=== PATIENT | male | born 1950 | race Caucasian/White ===

== ENCOUNTER 2016-09-15 09:50 | Inpatient (IN) | payer MEDICARE, BC ==
[~2016-09-15] VITALS: Ht 165.1 cm; Wt 114.1 kg
[2016-09-15] VITALS (43 sets, daily range): BP systolic 69–108; BP diastolic 24–70; PULSE 91–105; RESP 7–34
[2016-09-15] MEDS ORDERED: SOD CHLORIDE 0.9% 1,000 ML IV SCH ×2 (10:08)
[2016-09-15] MEDS ORDERED: ALBUTEROL 0.5% (NEB) 2.5 MG/0.5 ML AMP NEB PRN (10:30)
[2016-09-15] MEDS ORDERED: DOBUTamine/D5W 1 MG/ML DRIP 250 ML IV SCH (10:30)
[2016-09-15] MEDS ORDERED: VANCOMYCIN IV PER PHARMACY XX SCH (10:30)
[2016-09-15] MEDS ORDERED: IPRATROPIUM (NEB) 0.5 MG/2.5 ML AMP NEB PRN (10:30)
[2016-09-15] MEDS ORDERED: LORAZEPAM 2 MG INJ IV PRN (10:30)
[2016-09-15] MEDS ORDERED: NITROGLYCERIN (SL) 0.4 MG TAB SL PRN (10:30)
[2016-09-15] MEDS ORDERED: DEXTROSE 5%-0.45% NACL 1,000 ML IV SCH (10:30)
[2016-09-15] MEDS ORDERED: ACETAMINOPHEN 325 MG TAB PO PRN (10:30)
[2016-09-15] MEDS ORDERED: ACETAMINOPHEN 650MG/20.3ML CUP PO PRN (10:30)
[2016-09-15] MEDS ORDERED: METOCLOPRAMIDE 10 MG INJ IV PRN (10:30)
[2016-09-15] MEDS ORDERED: SOD CHLORIDE 0.9% 1,000 ML IV PRN (10:38)
[2016-09-15] MEDS ORDERED: DEXTROSE 50% 50 ML SYRINGE IV PRN ×4 (11:30→18:30)
[2016-09-15] MEDS ORDERED: GLUCAGON 1 MG INJ IM PRN (11:30)
[2016-09-15] MEDS ORDERED: GLUCOSE GEL 15 GRAM TUBE PO PRN ×2 (11:30)
[2016-09-15] MEDS ORDERED: GLUCOSE GEL 15 GRAM TUBE BUCCAL PRN (11:30)
--- NOTE | 2016-09-15 11:42 | HP ---
DATE OF ADMISSION: 09/15/2016 The patient was transferred from [facility] secondary to sepsis. REASON FOR ADMISSION: Sepsis and decrease in mentation. HISTORY OF PRESENT ILLNESS: This is an unfortunate 66-year-old gentleman with past medical history of hypertension, diabetes mellitus type 2, cirrhosis, multiple myeloma, lung cancer, hepato cellular carcinoma, benign prostatic hypertrophy, hemorrhagic stroke in July of 2016 and has had expressive aphasia then subsequent seizure, developed status epilepticus and has not recovered from mental status since then. Then, he was recently was subsequently intubated in August of 2016 and required mechanical ventilatory support subsequent tracheostomy and gastrostomy. He has required s everal attempts of paracentesis secondary to cirrhosis, has been placed on G-tube feeding and was tr ansferred to [place] on 09/03/2016 which he has been seen and evaluated by research quality assurance specialist, nephrologis t, architectural draftsman, inspector and clerk, and he has had several episodes of hypernatremia, hyperglyce aron. He was found to be in respiratory distress for the past 2 days, requiring more oxygen and has been having fever; therefore, secondary to sepsis he was transferred to [facility] ICU. Un fortunately, the patient is not able to provide me with any information. Great amount of informatio n was obtained from the previous notes from [facility] and Nephrology sail repair person who has been zunilda ng care of him during the course of [place] and the previous notes and hospitalization. The patient is very obtunded and is not able to follow any commands or respond to any pain or verbal stimuli. PAST MEDICAL AND SURGICAL HISTORY: As above per HPI. MEDICATIONS: 1. Tylenol. 2. Albuterol. 3. Caspofungin. 4. Lasix. 5. Insulin sliding scale. 6. Atrovent. 7. Vimpat. 8. Keppra. 9. Ativan. 10. Reglan. 11. Pepcid. 12. Rifaximin. 13. Aldactone. ALLERGIES: NO KNOWN DRUG ALLERGIES. FAMILY HISTORY: Noncontributory. SOCIAL HISTORY: Apparently, he has a history of alcohol use, smoking unknown, illicit drug is unkno wn. REVIEW OF SYSTEMS: Not obtainable since patient is not able to provide me any information. PHYSICAL EXAMINATION: VITAL SIGNS: Temperature 98.6, pulse 106, respiration rate 26, oxygen saturation 94% on the vent, t idal volume 600, FIO2 of 40% with a PEEP of 5 and blood pressure 94/57 on dopamine 5 mcg. GENERAL APPEARANCE: The patient is lying in the bed, very obtunded and not able to follow any comma nds, does have generalized edema. He is on vent and trach and has a PEG tube. EYES: Conjunctivae is icteric. Pupils are reactive to light, although sluggish, he is not able to follow commands, extraocular motor examination is not obtainable. NECK: Supple. Tracheostomy in place. The tracheostomy site is dry and clean. CHEST: Normal expansion of thorax, no deformity. LUNGS: Decreased breath sounds bilateral lower lung leonard with crackles. CARDIOVASCULAR: Normal S1, S2. Regular rhythm and rate. Positive 3 edema bilateral upper and lowe r extremity. ABDOMEN: Distended with evidence of ascites. Bowel sounds distant secondary to abdominal distentio n. GENITOURINARY: Penis is swollen and edematous. Chavez in place. EXTREMITIES: Upper and lower extremities there is no deformity, although, there is positive 3 edema bilateral upper and lower extremity. There is decubitus on bilateral heels. NEUROLOGIC: Not obtainable. The patient is awake, although, not alert or oriented, and unable to f ollow commands. LABORATORY WORK AND IMAGING: WBC 20.4, hemoglobin 9.7, hematocrit 29.3, MCV 116.3, platelets 75, ne utrophil 30. Sodium 135, potassium 5.7, chloride 104, bicarbonate 12, BUN 82, creatinine 2.08, anio n gap 25. Lactic acid 10.6, glucose 94, calcium 11.1, phosphorus 5.9, TIBC 151, total iron 73, iron sat of 48, ferritin 662, total bilirubin 4.8, direct bilirubin 3.1, indirect bilirubin 1.7, AST 77, ALT 82, alkaline phosphatase 287. Ammonia 36. Albumin 2.6. ASSESSMENT AND PLAN: 1. Sepsis, likely secondary to pneumonia. Pulmonology has been consulted. Patient has been placed on cefepime and vancomycin. Infectious disease doctor has been consulted. We will follow their re commendation. Follow up blood culture. Place the patient on septic protocol. The patient is on do pamine. 2. History of cirrhosis. 3. Acute on chronic renal insufficiency, likely secondary to acute tubular necrosis. Nephrology jonas gentile. 4. Cirrhosis secondary to history of end-stage liver disease. 5. History of immunocompromise. 6. Hyperkalemia. 7. Thrombocytopenia secondary to history of cirrhosis. 8. Transaminitis secondary to history of cirrhosis and end-stage liver disease. 9. Diabetes mellitus type 2. 10. History of essential hypertension. At this time, the patient is hypotensive. We will hold blo od pressure medication and place on parameters. 11. Ventilator-dependent respiratory failure. Pulmonology is following. 12. History of hemorrhagic CVA. Patient is obtunded we will refrain from using any antiplatelet or anticoagulation medication. 13. CONDITION: Critical. 14. We will continue to monitor patient closely. Further recommendations, management and treatment as per clinical course. Total amount of time was spent for evaluation of patient and admission workup 1 hour. Dictated By: MIKE JESUS/NTS Conf#: [id number] DID#: [id number]
[2016-09-15] MEDS: INSULIN ASPART [NOVOLOG] 3 ML PEN SC SCH ×2 (13:00→17:00)
[2016-09-15] MEDS: CEFEPIME 1GM/50 ML (PMX) 50 ML IVPB SCH ×2 (13:30→23:24)
[2016-09-15] MEDS: DOPamine-D5W 1.6 MG/ML 250 ML IV SCH ×4 (13:35→23:30)
[2016-09-15] MEDS ORDERED: VANCOMYCIN 2 GM in SOD CHLORIDE 0.9% 500 ML IVPB SCH (14:00)
[2016-09-15 14:17] LABS: AADO2 Arterial 193.5 mmHg (7.0-24.0); Allen Test ACCEPTAB; Arterial Base Excess -15.6 mmol/L (-3.0-3); Arterial COHb 0.1 % (0.0-3.0); Arterial Fraction of Oxyhgb 90.8 % (93.0-99.0); Arterial HCO3 9.5 mmol/L (22.0-26.0); Arterial MetHb 0.1 % (0.0-1.5); Arterial Total Hemglobin 11.6 g/dl (12.0-18.0); MODE VENT - AC
--- NOTE | 2016-09-15 15:54 | CONS ---
DATE OF ADMISSION: 09/15/2016 DATE OF CONSULTATION: 09/15/2016 TYPE OF CONSULTATION: Infectious disease. REASON FOR CONSULTATION: Antibiotic management. HISTORY OF PRESENT ILLNESS: Ankit Harris is a chronically male who was transferred fro [facility] secondary to sepsis. PAST PROBLEMS INCLUDE: 1. Hypertension. 2. Adult-onset diabetes mellitus. 3. Cirrhosis of the liver. 4. Multiple myeloma. 5. Lung cancer. 6. Hepatocellular carcinoma. 7. Benign prostatic hypertrophy. 8. History of hemorrhagic stroke in July 2016 with expressive aphasia and subsequent seizures. 9. History of status epilepticus. 10. Decreased mental status. 11. Ventilatory dependent respiratory failure. 12. Status post tracheostomy. 13. Dysphagia, status post G-tube placement. 14. Ascites secondary to cirrhosis. He was transferred to [place] on 09/03/2016. He was seen and ev aluated by multiple specialists. Patient was found to be in respiratory distress over the last few d ays, requiring more oxygen, having fever and therefore was transferred to the ICU at [facility]. His family is by his bedside. The patient is awake, but noncommunicative at the present time . PAST MEDICAL HISTORY: Operations as outlined. FAMILY HISTORY: Noncontributory. SOCIAL HISTORY: He has a history of alcohol abuse. He does not smoke or abuse drugs. ALLERGIES: NONE TO PENICILLIN, SULFA OR FOODS. MEDICATIONS: Per chart. REVIEW OF SYSTEMS: As per HPI. PHYSICAL EXAMINATION: GENERAL: The patient is a well-developed, chronically ill-appearing male who is awake, noncommunica tive, in no acute distress. VITAL SIGNS: On FIO2 of 40%, PEEP of 5 to maintain his blood pressure, oxygen saturation at 94%, bl ood pressure 94/57. He is on dopamine 5 mcg/kg per minute. SKIN: Without generalized rash. He has a trach, PEG, Chavez and a PICC line. HEENT: Within normal limits. NECK: Supple. Tracheostomy in place, dry and clean. LYMPH NODES: None palpable. CHEST: Decreased breath sounds at the bases. HEART: Without murmur or gallop. ABDOMEN: Soft, nontender, distended. G-tube in place. He has evidence of ascites. EXTREMITIES: He has 2+ to 3+ edema bilaterally. He has decubiti on both heels. RECTAL/GENITAL: Exam is deferred. Chavez catheter in place. Scrotum is edematous. NEUROLOGIC: The patient is awake, unable to follow commands. ANCILLARY LABORATORY DATA: White count 20.7, H and H of 9.7 and 29.3, platelet count 75,000. BUN a nd creatinine 82/2.08, anion gap 25, total bilirubin 4.8, direct bilirubin 3.1, indirect is 1.7, AST 77, ALT 82, alk phos 287, ammonia 36, albumin 2.6. IMPRESSION AND PLAN: The patient is septic, probably related to pneumonitis. He was placed on vanc omycin and cefepime. Blood cultures were done. He is currently on dopamine. His chest x-ray from 09/12/2016 shows pulmonary vascular congestion with opacities within the lung base, likely due to pl eural effusions and atelectasis. He was placed on caspofungin and cefepime. Wound care was ordered . We will check on blood cultures, sputum cultures, urine cultures. I will dictate my findings to Dr. Dunbar and the hospitalist. Dictated By: JENNY ANDRADE MD, JD/RA Conf#: [id number] DID#: [id number]
[2016-09-15] MEDS: COLLAGENASE 30 GM TUBE TOP SCH (16:00)
[2016-09-15] MEDS: SILVER SULFADIAZINE 1% 25 GM CR TOP SCH (16:00)
--- NOTE | 2016-09-15 16:12 | CONS ---
DATE OF ADMISSION: 09/15/2016 DATE OF CONSULTATION: TYPE OF CONSULTATION: Pulmonary. REASON FOR CONSULTATION: Hypotension, ventilator management. Thank you, Dr. Dunbar, for this consultation. HISTORY OF PRESENT ILLNESS: This is a 66-year-old gentleman with multiple medical problems, transfe rred from [facility] to [facility] for the intensive care unit fo r low blood pressure. Few further details are available. PAST MEDICAL HISTORY: Includes multiple myeloma, hepatocellular carcinoma, BPH, history of lung canc er and recent history of hemorrhagic stroke with subsequent encephalopathy requiring tracheostomy, m echanical ventilation and G-tube placement. Since that time he has had several paracenteses performe d for abdominal ascites, continues mechanical ventilation and was transferred to [facility] for possible mechanical ventilator weaning. However, today became less responsive, requirin g transfer to intensive care unit for low blood pressure. PAST MEDICAL HISTORY: As above. MEDICATIONS: Per chart. ALLERGIES: NONE. SOCIAL HISTORY: Nonsmoker, no alcohol, no history of drug use. FAMILY HISTORY: Noncontributory. SYSTEMS REVIEW: A 12-point review of systems unable to perform. PHYSICAL EXAMINATION: GENERAL: Chronically ill appearing gentleman. Opens eyes to voice but not consistently following c ommands. VITAL SIGNS: Temperature 98, pulse is 100, blood pressure 97/65, O2 saturation 96%, FIO2 of 40%. NECK: Trach site clean and intact. CARDIAC: S1, S2, no added sounds or murmurs. CHEST: Diminished air entry bilaterally. ABDOMEN: Soft, nontender. No guarding or rebound. EXTREMITIES: No cyanosis, clubbing, 2+ edema. NEUROLOGIC: Generalized weakness, unable to assess. LABORATORY DATA: CBC and Chem-7 are pending. Lactic acid was 10.4. Arterial blood gas pH was 7.26 , pCO2 of 21, pO2 of 66, bicarbonate was 9.5. IMPRESSION: 1. Septic shock, likely polymicrobial. 2. Vent dependent respiratory failure. 3. History of multiple malignancies. 4. Encephalopathy following recent hemorrhagic CVA. The patient will require: 1. Vent support. 2. Adjust for metabolic acidosis. 3. Intravenous bicarbonate drip. 4. Broad-spectrum antibiotics. 5. DVT and GI prophylaxis. Overall prognosis is very poor. The patient is unlikely to survive this episode. Dictated By: KEITH GONZALEZ/RA Conf#: [id number] DID#: [id number]
[2016-09-15 16:23] LABS: HEMATOCRIT 27.7 % (42.0-52.0); MEAN CORPUSCULAR HEMOGLOBIN 38.1 pg (29.0-33.0); MEAN CORPUSCULAR HGB CONC 32.6 g/dl (32.0-37.0); MEAN CORPUSCULAR VOLUME 117.1 fl (82.0-101.0); MEAN PLATELET VOLUME 12.8 fl (7.4-10.4); PLATELET COUNT 67 10^3/UL (140-440); RED BLOOD COUNT 2.37 10^6/ul (4.70-6.10); RED CELL DISTRIBUTION WIDTH 25.9 % (11.5-14.5); WHITE BLOOD COUNT 15.6 10^3/ul (4.8-10.8)
[2016-09-15 16:25] LABS: CONDITION 1; LH ANALYZER COMMENTS 1; SUSPECT 1; UNCORRECTED WBC 16.6 10^3/ul (4.8-10.8)
[2016-09-15 16:32] LABS: ALBUMIN 1.8 g/dl (3.3-4.9)
[2016-09-15 16:33] LABS: POTASSIUM 4.7 mmol/L (3.5-5.1)
[2016-09-15 16:35] LABS: ALBUMIN/GLOBULIN RATIO 0.58; BILIRUBIN,DIRECT 5.7 mg/dl (0.00-0.20); BILIRUBIN,INDIRECT 1.8 mg/dl (0-1.1); BILIRUBIN,TOTAL 7.5 mg/dl (0.2-1.3); CREATININE 0.53 mg/dl (0.61-1.24); TOTAL PROTEIN 4.9 g/dl (6.1-8.1)
[2016-09-15 16:36] LABS: CALCIUM 8.9 mg/dl (8.4-10.2)
[2016-09-15 16:59] LABS: LYMPHOCYTES # 0.3 10^3/ul (0.8-2.9); NEUTROPHIL # 9.5 10^3/ul (1.6-7.5)
[2016-09-15 17:00] LABS: ANISOCYTOSIS 2+; BURR CELLS FEW
[2016-09-15] MEDS ORDERED: SODIUM BICARBONATE (IV ADD) 150 MEQ in DEXTROSE 5%-0.45% NACL 1,000 ML IV SCH (17:00)
[2016-09-15 17:01] LABS: PLATELET ESTIMATE PLT APPEAR DECREASED
[2016-09-15] MEDS: SODIUM BICARBONATE (IV ADD) 150 MEQ in DEXTROSE 5% 1,000 ML IV SCH (17:11)
[2016-09-15] MEDS: FUROSEMIDE 20 MG TAB PO SCH (18:00)
--- NOTE | 2016-09-15 18:29 | CONS ---
Date/Time of Note Date/Time of Note DATE: 09/15/16 TIME: 18:20 Assessment/Plan Assessment/Plan Problems: (1) Type 2 diabetes mellitus without complications Status: Chronic Comment: Pt. was on insulin at [place] and this dose was being adjusted b/c pt. w/ recent high residuals and tube feeds being intermittently held. Pt. did receive NPH this am. Now glucose near low. Withhold NPH and even Novolog ISS. Check glucose q4. If glucose > 180 mg/dL, will start IV insulin drip. Will follow with you. Prognosis exceptionally poor. Consultation Date/Type/Reason Admit Date/Time Sep 15, 2016 at 09:50 Date of Consultation: Sep 15, 2016 Type of Consultation: Endocrinology Reason for Consultation T2DM management Referring Provider: WELLINGTON HERRON MD Hx of Present Illness 66 y/o H M w/ h/o HTN, T2DM, cirrhosis, multiple myeloma, lung cancer, HCC, BPH , p/w hemorrhagic CVA 1 month ago. Had subsequent seizures, status epilepticus , respiratory failure. Has been encephalopathic since then. Transferred to [facility] and I became involved to manage BG. This am pt. became hypotensive and was transferred to [facility]ICU. Subjective hx not possible: pt non-verbal, pt critical Past Medical History Medical History: cancer (multiple myeloma, lung CA, HCC), congestive heart failure (diastolic), diabetes, hypertension, other (BPH, cirrhosis, CVA) Past Surgical History Past Surgical Hx: appendectomy, cholecystectomy, other (mulitple removals of HCC, trach, PEG) Family History Significant Family History: hypertension Social History b. 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[employer], , 3 children Alcohol Use: sober Smoking Status: Unknown if ever smoked Drug Use: none Exam/Review of Systems Vital Signs Vitals VS - Last 72 Hours, by Label Date Time Temp Pulse Resp B/P Pulse Ox O2 Delivery O2 Flow Rate FiO2 09/15/16 17:30 96 27 103/24 99 09/15/16 17:28 99 25 98 40 09/15/16 17:00 98 28 89/44 98 Mechanical Ventilator 09/15/16 16:30 99 28 91/31 95 09/15/16 16:00 96.1 102 27 91/35 95 Mechanical Ventilator 09/15/16 16:00 99 09/15/16 16:00 103 09/15/16 15:50 102 28 95 40 09/15/16 15:30 101 27 89/39 95 09/15/16 15:00 102 31 88/42 95 Mechanical Ventilator 09/15/16 14:30 97 7 81/33 92 09/15/16 14:16 101 30 92 40 09/15/16 14:00 101 14 97/56 95 Mechanical Ventilator 09/15/16 13:30 100 27 89/33 95 09/15/16 13:00 102 34 93/48 93 Mechanical Ventilator 09/15/16 12:30 101 33 103/70 98 09/15/16 12:20 102 30 94 40 09/15/16 12:00 96.8 104 29 101/59 94 Mechanical Ventilator 09/15/16 11:30 102 29 90/63 94 09/15/16 11:00 99 28 91/52 94 Mechanical Ventilator 09/15/16 10:30 96.7 103 24 96/65 95 Mechanical Ventilator 09/15/16 10:00 104 30 94 40 09/15/16 10:00 40 09/15/16 10:00 101 Vital Signs Date Time Temp Pulse Resp B/P Pulse Ox O2 Delivery O2 Flow Rate FiO2 09/15/16 17:30 96 27 103/24 99 09/15/16 17:28 40 09/15/16 17:00 Mechanical Ventilator 09/15/16 16:00 96.1 Exam Constitutional: frail, non-verbal, obese, No alert, No oriented, No well developed Eyes: PERRL, icteric ENMT: mucosa pink and moist, nl external ears & nose Neck: non-tender, other ((+) trach), supple Respiratory: clear to auscultation, normal air movement Cardiovascular: edema (4+ diffuse anasarca), murmurs/extra sounds (grade 3 systolic), regular rate and rhythm, No rub Gastrointestinal: ascites, bowel sounds, distended, firm, non-tender Musculoskeletal: nl extremities to inspection Extremities: edema (anasarca), No clubbing, No cyanosis Neurological: unresponsive (eyes open, rapid breathing on vent) Additional Comments Bedside Glucose - 72 Hours Test 09/15/16 13:28 09/15/16 16:46 09/15/16 17:09 09/15/16 17:23 Bedside Glucose 86mg/dL (70-220) 64mg/dL (70-220) L 105mg/dL (70-220) 98mg/dL (70-220) Results Result Diagram: 09/15/16 1600 09/15/16 1600 Results 24 hrs Laboratory Tests Test 09/15/16 11:02 09/15/16 13:28 09/15/16 13:36 09/15/16 16:00 Lactic Acid Level 10.4 *H 9.4 *H Prealbumin 3.3 L Bedside Glucose 86 Arterial Blood HCO3 9.5 *L Arterial Blood Base Excess -15.6 L Arterial Blood Oxygen Saturation 91.0 L Wai Test ACCEPTAB Arterial Blood Gas Puncture Site Right Radial Arterial Blood Carboxyhemoglobin 0.1 Arterial Blood Date Drawn 09/15/2016 2:00:27 PM Arterial Blood Methemoglobin 0.1 Arterial Blood pCO2 (Temp correct) 21.6 L Arterial Blood pH (Temp corrected) 7.262 *L Arterial Blood pO2 (Temp corrected) 66.9 L Blood Gas A-a O2 Differential 193.5 H Blood Gas Actual Respiration Rate 14 Blood Gas Critical Value Read Back Irma GERMAN RN Blood Gas Low PEEP Setting 5.0 Blood Gas Modality VENT - AC Blood Gas Notified Time 09/15/2016 2:16:11 PM Blood Gas Notified Whom JLD Blood Gas Respiration Rate 12.0 Blood Gas Specimen Source Blood arterial Blood Gas Temperature 37.0 Blood Gas Tidal Volume 600.0 FiO2 40.0 Oxyhemoglobin Percent 90.8 L Total Hemoglobin 11.6 L Alanine Aminotransferase (ALT/SGPT) 234 H Albumin 1.8 L Albumin/Globulin Ratio 0.58 Alkaline Phosphatase 126 #H Anion Gap 26 H Anisocytosis 2+ Aspartate Amino Transf (AST/SGOT) 320 #H Band Neutrophils % 35.0 H Blood Morphology Comment Blood Urea Nitrogen 69 H Calcium Level 8.9 Carbon Dioxide Level 8 *L Chloride Level 99 Creatinine 0.53 #L Direct Bilirubin 5.70 #H Globulin 3.10 Glucose Level 307 #H Hematocrit 27.7 L Hemoglobin 9.0 L Indirect Bilirubin 1.8 H Large Platelets FEW Lymphocytes # 0.3 L Lymphocytes % 2.0 L Macrocytosis 2+ Mean Corpuscular Hemoglobin 38.1 H Mean Corpuscular Hemoglobin Concent 32.6 Mean Corpuscular Volume 117.1 H Mean Platelet Volume 12.8 H Metamyelocytes # 0.3 Metamyelocytes % 2.0 H Neutrophils # 9.5 H Neutrophils % 61.0 Platelet Count 67 L Platelet Estimate PLT APPEAR DECREASED Potassium Level 4.7 Red Blood Count 2.37 L Red Cell Distribution Width 25.9 H Sodium Level 128 L Total Bilirubin 7.5 #H Total Protein 4.9 #L White Blood Count 15.6 #H Test 09/15/16 16:46 09/15/16 17:09 09/15/16 17:23 Bedside Glucose 64 L 105 98 Medications Medications Current Medications Nitroglycerin (Nitroglycerin (Sl Tab) 0.4 Mg) 1 tab Q5M PRN SL CHEST PAIN; Start 09/15/16 at 10:30 Acetaminophen (Tylenol Liquid) 650 mg Q6H PRN PO PAIN LEVEL 1-3 OR FEVER; Start 09/15/16 at 10:30 Acetaminophen (Tylenol Tab) 650 mg Q6H PRN PO PAIN LEVEL 1-3 OR FEVER; Start at 10:30 Lorazepam (Ativan) 1 mg Q2H PRN IV ANXIETY; Start 09/15/16 at 10:30 Pantoprazole 40 mg 40 mg DAILY@06 IV ; Start 09/16/16 at 06:00 Cefepime HCl 50 ml @ 100 mls/hr Q12 IVPB Last administered on 09/15/16t 13:30; Admin Dose 100 MLS/HR; Start 09/15/16 at 12:35; Stop 09/15/16 at 23:29 Caspofungin/ Sodium Chloride (Cancidas/NS) 250 ml @ 250 mls/hr Q24H IVPB ; Start 09/15/16 at 22:00; Stop 09/15/16 at 23:59 Lacosamide (Vimpat Liq) 100 mg BID PO ; Start 09/15/16 at 21:00 Levetiracetam (Keppra Liquid) 500 mg BID GTB ; Start 09/15/16 at 21:00 Metoclopramide HCl (Reglan) 5 mg Q6H PRN IV CONSTIPATION; Start 09/15/16 at 10: 30 Rifaximin (Xifaxan) 550 mg BID PO ; Start 09/15/16 at 21:00 Spironolactone (Aldactone) 25 mg DAILY PO ; Start 09/16/16 at 09:00 Insulin Aspart (Novolog Insulin Pen) NOVOLOG *MILD* ALGORI... Q4 SC ; Start 09/15 at 13:00 Miscellaneous Information 1 ea NOTE XX ; Start 09/15/16 at 11:30 Glucose (Glutose) 15 gm Q15M PRN PO DECREASED GLUCOSE; Start 09/15/16 at 11:30 Glucose (Glutose) 22.5 gm Q15M PRN PO DECREASED GLUCOSE; Start 09/15/16 at 11:30 Dextrose (D50w Syringe) 25 ml Q15M PRN IV DECREASED GLUCOSE Last administered on 09/15/16 16:52; Admin Dose 25 ML; Start 09/15/16 at 11:30 Dextrose (D50w Syringe) 50 ml Q15M PRN IV DECREASED GLUCOSE; Start 09/15/16 at 11:30 Glucagon (Glucagen) 1 mg Q15M PRN IM DECREASED GLUCOSE; Start 09/15/16 at 11:30 Glucose 15 gm 15 gm Q15M PRN BUCCAL DECREASED GLUCOSE; Start 09/15/16 at 11:30 Vancomycin HCl 2 gm/Sodium Chloride 500 ml @ 125 mls/hr ONCE IVPB Last administered on 09/15/16 14:37; Admin Dose 125 MLS/HR; Start 09/15/16 at 14:00; Stop 09/15/16 at 23:33 Vancomycin HCl 250 ml @ 125 mls/hr Q24H IVPB ; Start 09/16/16 at 14:00 Dopamine HCl/ Dextrose 250 ml @ 8.558 mls/ hr TITRATE IV Last administered on 09/15/16 16:56; Admin Dose 85.575 MLS/HR; Start 09/15/16 at 12:00 Cefepime HCl 50 ml @ 100 mls/hr Q24H IVPB ; Start 09/16/16 at 09:00 Caspofungin/ Sodium Chloride (Cancidas/NS) 250 ml @ 250 mls/hr Q24H IV ; Start 09/16/16 at 12:00 Collagenase (Santyl) 1 applic QAM TOP Last administered on 09/15/16 16:00; Admin Dose 1 APPLIC; Start 09/15/16 at 15:00 Silver Sulfadiazine 1 applic 1 applic DAILY TOP Last administered on 09/15/16 16:00; Admin Dose 1 APPLIC; Start 09/15/16 at 15:00 Sodium Bicarbonate 150 meq/Dextrose 1,150 ml @ 100 mls/hr [id number] IV Last administered on 09/15/16 17:11; Admin Dose 100 MLS/HR; Start 09/15/16 at 17:00 Norepinephrine/ Dextrose (Levophed/D5W) 500 ml @ 1.87 mls/hr TITRATE IV Last administered on 09/15/16 17:51; Admin Dose 3.75 MLS/HR; Start 09/15/16 at 16:30 NICKI LOWERY MD Sep 15, 2016 18:29
[2016-09-15 19:02] LABS: CALCIUM 10.7 mg/dl (8.4-10.2)
[2016-09-15 19:11] LABS: CREATININE 2.11 mg/dl (0.61-1.24)
[2016-09-15] MEDS ORDERED: ACCUCHECK XX SCH (20:00)
[2016-09-15] MEDS ORDERED: INSULIN REGULAR, HUMAN 100 UNIT in SOD CHLORIDE 0.9% 99 ML IV SCH ×2 (20:00)
[2016-09-15 20:49] LABS: AADO2 Arterial 188.3 mmHg (7.0-24.0); Allen Test ACCEPTAB; Arterial Base Excess -15.4 mmol/L (-3.0-3); Arterial COHb 0.2 % (0.0-3.0); Arterial HCO3 9.9 mmol/L (22.0-26.0); Arterial MetHb 0.2 % (0.0-1.5); Arterial Total Hemglobin 11.2 g/dl (12.0-18.0); MODE VENT - AC
[2016-09-15] MEDS: ACCUCHECK XX SCH (21:00)
[2016-09-15] MEDS: LEVETIRACETAM (100 MG/ML) 5ML CUP GTB SCH (21:37)
[2016-09-15] MEDS: RIFAXIMIN 550 MG TAB PO SCH (21:37)
[2016-09-15] MEDS: LACOSAMIDE (10 MG/ML PO SYG) PO SCH (21:37)
[2016-09-15] MEDS ORDERED: CASPOFUNGIN 50 MG in SOD CHLORIDE 0.9% 250 ML IVPB SCH (22:00)
[2016-09-16] VITALS (28 sets, daily range): BP systolic 85–106; BP diastolic 27–63; PULSE 80–137; RESP 0–32
[2016-09-16] MEDS: ACCUCHECK XX SCH ×3 (01:00→09:00)
[2016-09-16] MEDS: DOPamine-D5W 1.6 MG/ML 250 ML IV SCH ×2 (04:27→07:59)
[2016-09-16 05:21] LABS: HEMATOCRIT 26.7 % (42.0-52.0); HEMOGLOBIN 8.4 g/dl (14.0-18.0); MEAN CORPUSCULAR HEMOGLOBIN 38.7 pg (29.0-33.0); MEAN CORPUSCULAR HGB CONC 31.5 g/dl (32.0-37.0); MEAN PLATELET VOLUME 13.2 fl (7.4-10.4); PLATELET COUNT 70 10^3/UL (140-440); RED BLOOD COUNT 2.17 10^6/ul (4.70-6.10); RED CELL DISTRIBUTION WIDTH 25.9 % (11.5-14.5); UNCORRECTED WBC 19.6 10^3/ul (4.8-10.8); WHITE BLOOD COUNT 19.6 10^3/ul (4.8-10.8)
[2016-09-16] MEDS: SODIUM BICARBONATE (IV ADD) 150 MEQ in DEXTROSE 5% 1,000 ML IV SCH (05:34)
[2016-09-16] MEDS: FUROSEMIDE 20 MG TAB PO SCH (05:36)
[2016-09-16] MEDS ORDERED: PANTOPRAZOLE 40 MG INJ IV SCH (06:00)
[2016-09-16 06:06] LABS: CONDITION 1; LH ANALYZER COMMENTS 1; SUSPECT 1
--- NOTE | 2016-09-16 07:43 | RADRPT ---
PROCEDURE: XR Chest. CLINICAL INDICATION: Respiratory failure TECHNIQUE: Chest AP portable. COMPARISON: 09/15/2016 FINDINGS: Tracheostomy tube. No change in left arm PICC line. The mediastinal structures are unremarkable. The heart is normal in size and configuration. The pulm onary vascularity is normal. There are low lung volumes.. There is mild bibasilar subsegmental atele ctasis. The pleural spaces are unremarkable. The axial skeleton is unremarkable. IMPRESSION: Low lung volumes. Mild bibasilar subsegmental atelectasis RPTAT: HGDB .Manuel Watkins MD, Date Time Electronically viewed and signed by .Manuel Watkins MD, on 09/16/2016 07:43 .B/
[2016-09-16 08:05] LABS: Allen Test ACCEPTAB; Arterial Base Excess -17.7 mmol/L (-3.0-3); Arterial COHb 0.3 % (0.0-3.0); Arterial Fraction of Oxyhgb 93.2 % (93.0-99.0); Arterial HCO3 7.9 mmol/L (22.0-26.0); Arterial MetHb 0.3 % (0.0-1.5); Arterial Total Hemglobin 11.2 g/dl (12.0-18.0); MODE VENT - AC
[2016-09-16] MEDS: LEVETIRACETAM (100 MG/ML) 5ML CUP GTB SCH (08:48)
[2016-09-16] MEDS: RIFAXIMIN 550 MG TAB PO SCH (08:49)
[2016-09-16 08:50] LABS: POTASSIUM 6.7 mmol/L (3.5-5.1)
[2016-09-16] MEDS: COLLAGENASE 30 GM TUBE TOP SCH (08:50)
[2016-09-16] MEDS: SILVER SULFADIAZINE 1% 25 GM CR TOP SCH (08:51)
[2016-09-16 08:52] LABS: CREATININE 2.08 mg/dl (0.61-1.24)
[2016-09-16 08:53] LABS: ANISOCYTOSIS 2+; BURR CELLS OCCASIONAL; LYMPHOCYTES # 0.4 10^3/ul (0.8-2.9); MONOCYTE # 0.2 10^3/ul (0.3-0.9); NEUTROPHIL # 12.3 10^3/ul (1.6-7.5)
[2016-09-16 08:57] LABS: ALBUMIN 2.3 g/dl (3.3-4.9)
[2016-09-16] MEDS ORDERED: SPIRONOLACTONE 25 MG TAB PO SCH (09:00)
[2016-09-16] MEDS ORDERED: COLLAGENASE 30 GM TUBE TOP SCH (09:00)
[2016-09-16] MEDS ORDERED: CEFEPIME 2GM/50 ML IVPB SCH (09:00)
[2016-09-16 09:05] LABS: BILIRUBIN,DIRECT 7.6 mg/dl (0.00-0.20); BILIRUBIN,INDIRECT 2.5 mg/dl (0-1.1); BILIRUBIN,TOTAL 10.1 mg/dl (0.2-1.3)
[2016-09-16] MEDS ORDERED: ALBUTEROL 0.5% (NEB) 2.5 MG/0.5 ML AMP HHN STA (09:09)
[2016-09-16] MEDS ORDERED: DEXTROSE 50% 50 ML SYRINGE IV ONE (09:30)
[2016-09-16] MEDS ORDERED: NA POLYST SULFON 15 GM/60 ML BTL PO ONE ×2 (09:30→10:30)
[2016-09-16] MEDS ORDERED: INSULIN REGULAR, HUMAN 100 UNIT/1 ML 3ML VIAL IV ONE (09:30)
[2016-09-16] MEDS: LACOSAMIDE (10 MG/ML PO SYG) PO SCH (09:53)
[2016-09-16] MEDS ORDERED: NA BICARBONATE 8.4% 50 ML SYG IV STA (10:01)
--- NOTE | 2016-09-16 10:21 | PN ---
Date/Time of Note Date/Time of Note DATE: 09/16/16 TIME: 10:09 Assessment/Plan VTE Prophylaxis VTE Prophylaxis Intervention: SCD's Lines/Catheters IV C[facility] Type (from [facility] PICC Line Central line still needed: Yes Urinary Cath still in place: Yes Reason Cath still needed: other (indicate) Assessment/Plan Chief Complaint/Hosp Course ASSESSMENT AND PLAN: 1. Sepsis, likely secondary to pneumonia. Pulmonology has been consulted. Patient has been placed on cefepime and vancomycin. Infectious disease doctor has been consulted. Continue septic protocol. The patient is on dopamine and levophed. 2. Possibly shock liver, with history of Cirrhosis secondary to history of end- stage liver disease. 3. Acute on chronic renal insufficiency, likely secondary to acute tubular necrosis. Nephrology following. Continue IV fluids 4. Severe metabolic acidosis, on bicarb drip, status post 1 amp of sodium bicarb, nephrology consulted 5. History of immunocompromise. 6. Hyperkalemia. Secondary to acute renal insufficiency, status post Kayexalate, insulin, albuterol, follow up electrolytes in a.m. 7. Thrombocytopenia secondary to history of cirrhosis. 8. History of hemorrhagic CVA. Patient is obtunded we will refrain from using any antiplatelet or anticoagulation medication. 9. Diabetes mellitus type 2. Continue insulin sliding scale 10. History of essential hypertension. At this time, the patient is hypotensive. We will hold blood pressure medication and place on parameters. 11. Ventilator-dependent respiratory failure. Pulmonology is following. Continue vent management 12. CONDITION: Critical. We will continue to monitor patient closely. Further recommendations, management and treatment as per clinical course. Plan to meet up with the family regarding the CODE STATUS and further care Problems: Subjective 24 Hr Interval Summary Free Text/Dictation Patient blood pressure continued to decrease yesterday therefore additional pressors had to be added Met with the family on 2016 regarding the CODE STATUS Patient continues to be on vent No urine output On pressors via dopamine and levophed Exam/Review of Systems Vital Signs Vitals Vital Signs Date Time Temp Pulse Resp B/P Pulse Ox O2 Delivery O2 Flow Rate FiO2 09/16/16 06:00 83 26 101/51 98 Mechanical Ventilator 09/16/16 05:25 40 09/16/16 04:00 98.0 Intake and Output 09/15/16 09/15/1617 15:00 23:00 07:00 Intake Total 312 ml 1820.575 ml 1374 ml Balance 312 ml 1820.575 ml 1374 ml Exam General: The patient is unresponsive to pain or verbal stimuli although he is awake but not alert. Not in any discomfort HEENT: Atraumatic, normocephalic. The pupils are equal with sluggish reaction to light Neck: Trach in place Chest: Normal Lungs: Decreased breath sounds bilateral lower lung field with crackles Heart: Normal S1-S2, Regular rhythm and rate. Abdomen: Soft , nontender, distended with evidence of ascites, bowel sounds are distant secondary to abdominal distention Extremities: +3 edema no cyanosis Neurologic: The patient is awake, does not follow any commands Results Result Diagram: 09/16/16 0405 09/16/16 0708 Results 24 hrs Laboratory Tests Test 09/15/16 11:02 09/15/16 13:28 09/15/16 13:36 09/15/16 16:00 Lactic Acid Level 10.4 *H 9.4 *H Prealbumin 3.3 L Bedside Glucose 86 Arterial Blood HCO3 9.5 *L Arterial Blood Base Excess -15.6 L Arterial Blood Oxygen Saturation 91.0 L Wai Test ACCEPTAB Arterial Blood Gas Puncture Site Right Radial Arterial Blood Carboxyhemoglobin 0.1 Arterial Blood Date Drawn 09/15/2016 2:00:27 PM Arterial Blood Methemoglobin 0.1 Arterial Blood pCO2 (Temp correct) 21.6 L Arterial Blood pH (Temp corrected) 7.262 *L Arterial Blood pO2 (Temp corrected) 66.9 L Blood Gas A-a O2 Differential 193.5 H Blood Gas Actual Respiration Rate 14 Blood Gas Critical Value Read Back Irma GERMAN RN Blood Gas Low PEEP Setting 5.0 Blood Gas Modality VENT - AC Blood Gas Notified Time 09/15/2016 2:16:11 PM Blood Gas Notified Whom NEIDAD Blood Gas Respiration Rate 12.0 Blood Gas Specimen Source Blood arterial Blood Gas Temperature 37.0 Blood Gas Tidal Volume 600.0 FiO2 40.0 Oxyhemoglobin Percent 90.8 L Total Hemoglobin 11.6 L Alanine Aminotransferase (ALT/SGPT) 234 H Albumin 1.8 L Albumin/Globulin Ratio 0.58 Alkaline Phosphatase 126 #H Anion Gap 26 H Anisocytosis 2+ Aspartate Amino Transf (AST/SGOT) 320 #H Band Neutrophils % 35.0 H Blood Morphology Comment Blood Urea Nitrogen 69 H Calcium Level 8.9 Carbon Dioxide Level 8 *L Chloride Level 99 Creatinine 0.53 #L Direct Bilirubin 5.70 #H Globulin 3.10 Glucose Level 307 #H Hematocrit 27.7 L Hemoglobin 9.0 L Indirect Bilirubin 1.8 H Large Platelets FEW Lymphocytes # 0.3 L Lymphocytes % 2.0 L Macrocytosis 2+ Mean Corpuscular Hemoglobin 38.1 H Mean Corpuscular Hemoglobin Concent 32.6 Mean Corpuscular Volume 117.1 H Mean Platelet Volume 12.8 H Metamyelocytes # 0.3 Metamyelocytes % 2.0 H Neutrophils # 9.5 H Neutrophils % 61.0 Platelet Count 67 L Platelet Estimate PLT APPEAR DECREASED Potassium Level 4.7 Red Blood Count 2.37 L Red Cell Distribution Width 25.9 H Sodium Level 128 L Total Bilirubin 7.5 #H Total Protein 4.9 #L White Blood Count 15.6 #H Test 09/15/16 16:46 09/15/16 17:09 09/15/16 17:23 09/15/16 18:40 Bedside Glucose 64 L 105 98 Anion Gap 27 H Blood Urea Nitrogen 84 H Calcium Level 10.7 H Carbon Dioxide Level 11 L Chloride Level 103 Creatinine 2.11 #H Glucose Level 69 #L Potassium Level 6.0 H Sodium Level 135 Test 09/15/16 20:00 09/15/16 20:21 09/15/16 21:55 09/16/16 02:47 Arterial Blood HCO3 9.9 *L Arterial Blood Base Excess -15.4 L Arterial Blood Oxygen Saturation 92.4 L Wai Test ACCEPTAB Arterial Blood Gas Puncture Site Right Radial Arterial Blood Carboxyhemoglobin 0.2 Arterial Blood Date Drawn 09/15/2016 8:40:57 PM Arterial Blood Methemoglobin 0.2 Arterial Blood pCO2 (Temp correct) 22.7 L Arterial Blood pH (Temp corrected) 7.257 *L Arterial Blood pO2 (Temp corrected) 70.8 L Blood Gas A-a O2 Differential 188.3 H Blood Gas Actual Respiration Rate 27 Blood Gas Critical Value Read Back GAVIN CID Blood Gas Low PEEP Setting 5.0 Blood Gas Modality VENT - AC Blood Gas Notified Time 09/15/2016 8:48:59 PM Blood Gas Notified Whom MA Blood Gas Respiration Rate 22.0 Blood Gas Specimen Source Blood arterial Blood Gas Temperature 37.0 Blood Gas Tidal Volume 600.0 FiO2 40.0 Oxyhemoglobin Percent 92.0 L Total Hemoglobin 11.2 L Bedside Glucose 76 87 Lactic Acid Level 6.5 *H Test 09/16/16 04:05 09/16/16 06:52 09/16/16 07:00 09/16/16 07:08 Anisocytosis 2+ Band Neutrophils % 33.0 H Blood Morphology Comment Differential Comment MANUAL DIFF Giant Platelets RARE Hematocrit 26.7 L Hemoglobin 8.4 L Lactic Acid Level 9.3 *H Large Platelets RARE Lymphocytes # 0.4 L Lymphocytes % 2.0 L Macrocytosis 2+ Mean Corpuscular Hemoglobin 38.7 H Mean Corpuscular Hemoglobin Concent 31.5 L Mean Corpuscular Volume 123.0 H Mean Platelet Volume 13.2 H Metamyelocytes # 0.2 Metamyelocytes % 1.0 H Monocytes # 0.2 L Monocytes % 1.0 Neutrophils # 12.3 H Neutrophils % 63.0 Nucleated Red Blood Cells % 1.0 H Platelet Count 70 L Red Blood Count 2.17 L Red Cell Distribution Width 25.9 H White Blood Count 19.6 #H Bedside Glucose 110 Arterial Blood HCO3 7.9 *L Arterial Blood Base Excess -17.7 L Arterial Blood Oxygen Saturation 93.8 L Wai Test ACCEPTAB Arterial Blood Gas Puncture Site Right Radial Arterial Blood Carboxyhemoglobin 0.3 Arterial Blood Date Drawn 09/16/2016 7:50:57 AM Arterial Blood Methemoglobin 0.3 Arterial Blood pCO2 (Temp correct) 19.4 L Arterial Blood pH (Temp corrected) 7.228 *L Arterial Blood pO2 (Temp corrected) 78.9 L Blood Gas A-a O2 Differential 184.0 H Blood Gas Actual Respiration Rate 30 Blood Gas Critical Value Read Back Katya WONG RN Blood Gas Low PEEP Setting 5.0 Blood Gas Modality VENT - AC Blood Gas Notified Time 09/16/2016 8:05:32 AM Blood Gas Notified Whom JLD Blood Gas Respiration Rate 12.0 Blood Gas Specimen Source Blood arterial Blood Gas Temperature 37.0 Blood Gas Tidal Volume 600.0 FiO2 40.0 Oxyhemoglobin Percent 93.2 Total Hemoglobin 11.2 L Alanine Aminotransferase (ALT/SGPT) 1739 H Albumin 2.3 L Alkaline Phosphatase 245 #H Anion Gap 32 H Aspartate Amino Transf (AST/SGOT) 3769 H Blood Urea Nitrogen 85 H Calcium Level 10.0 Carbon Dioxide Level 6 #*L Chloride Level 99 Creatinine 2.08 H Direct Bilirubin 7.60 H Glucose Level 95 Indirect Bilirubin 2.5 H Magnesium Level 2.0 Potassium Level 6.7 *H Sodium Level 130 L Total Bilirubin 10.1 H Total Protein 6.0 #L Test 09/16/16 09:58 Bedside Glucose 108 Medications Medications Current Medications Nitroglycerin (Nitroglycerin (Sl Tab) 0.4 Mg) 1 tab Q5M PRN SL CHEST PAIN; Start 09/15/16 at 10:30 Acetaminophen (Tylenol Liquid) 650 mg Q6H PRN PO PAIN LEVEL 1-3 OR FEVER; Start 09/15/16 at 10:30 Acetaminophen (Tylenol Tab) 650 mg Q6H PRN PO PAIN LEVEL 1-3 OR FEVER; Start at 10:30 Lorazepam (Ativan) 1 mg Q2H PRN IV ANXIETY; Start 09/15/16 at 10:30 Pantoprazole (Protonix Iv) 40 mg DAILY@06 IV Last administered on 09/16/16 05: 35; Admin Dose 40 MG; Start 09/16/16 at 06:00 Lacosamide (Vimpat Liq) 100 mg BID PO Last administered on 09/16/16 09:53; Admin Dose 100 MG; Start 09/15/16 at 21:00 Levetiracetam (Keppra Liquid) 500 mg BID GTB Last administered on 09/16/16 08: 48; Admin Dose 500 MG; Start 09/15/16 at 21:00 Metoclopramide HCl (Reglan) 5 mg Q6H PRN IV CONSTIPATION; Start 09/15/16 at 10: 30 Rifaximin (Xifaxan) 550 mg BID PO Last administered on 09/16/16 08:49; Admin Dose 550 MG; Start 09/15/16 at 21:00 Spironolactone 25 mg 25 mg DAILY PO Last administered on 09/16/16 08:49; Admin Dose 25 MG; Start 09/16/16 at 09:00 Vancomycin HCl 250 ml @ 125 mls/hr Q24H IVPB ; Start 09/16/16 at 14:00 Dopamine HCl/ Dextrose 250 ml @ 8.558 mls/ hr TITRATE IV Last administered on 09/16/16 07:59; Admin Dose 85.575 MLS/HR; Start 09/15/16 at 12:00 Cefepime HCl 50 ml @ 100 mls/hr Q24H IVPB Last administered on 09/16/16 09:53 ; Admin Dose 100 MLS/HR; Start 09/16/16 at 09:00 Caspofungin/ Sodium Chloride (Cancidas/NS) 250 ml @ 250 mls/hr Q24H IV ; Start 09/16/16 at 12:00 Collagenase (Santyl) 1 applic QAM TOP Last administered on 09/16/16 08:50; Admin Dose 1 APPLIC; Start 09/15/16 at 15:00 Silver Sulfadiazine 1 applic 1 applic DAILY TOP Last administered on 09/16/16 08:51; Admin Dose 1 APPLIC; Start 09/15/16 at 15:00 Sodium Bicarbonate 150 meq/Dextrose 1,150 ml @ 100 mls/hr [id number] IV Last administered on 09/16/16 05:34; Admin Dose 100 MLS/HR; Start 09/15/16 at 17:00 Norepinephrine/ Dextrose (Levophed/D5W) 500 ml @ 1.87 mls/hr TITRATE IV Last administered on 09/15/16 17:51; Admin Dose 3.75 MLS/HR; Start 09/15/16 at 16:30 Diagnostic Test (Pha) (Accucheck) 1 ea Q1H XX ; Start 09/15/16 at 20:00; Status Future Hold Dextrose (D50w Syringe) 25 ml Q15M PRN IV Till BS 80 mg/dL or above x2; Start 09/15/16 at 18:30 Dextrose (D50w Syringe) 50 ml Q15M PRN IV Till BS 80 mg/dL or above x2; Start 09/15/16 at 18:30 Diagnostic Test (Pha) 1 ea 1 ea Q4 XX Last administered on 09/16/16 05:35; Admin Dose 1 EA; Start 09/15/16 at 21:00 Bumetanide/ Dextrose (Bumex/D5W) 250 ml @ 10 mls/hr Q24H IV ; Start 09/16/16 at 10:30; Status UNV Sodium Polystyrene Sulfonate 15 gm 15 gm ONCE ONCE PO ; Start 09/16/16 at 10:30 ; Stop 09/16/16 at 10:31 Albumin Human (Albumin Human 25%) 50 ml @ 100 mls/hr Q8H IV ; Start 09/16/16 at 10:30; Stop 09/17/16 at 02:59 MIKE QUINTEROS MD Sep 16, 2016 10:21
[2016-09-16] MEDS ORDERED: ALBUMIN HUMAN 25% 50 ML IV SCH (10:30)
--- NOTE | 2016-09-16 10:36 | RADRPT ---
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 Physician: MIKE QUINTEROS Quality: Technically Difficult Study Procedures: Transthoracic echocardiogram with complete 2D, M-Mode, and doppler examination. Indications: Evaluate Left Ventricular function. 2D/M Mode Doppler Measurement Value Normal Ranges Measurement Value Normal Ranges LVIDd 2D 3.9 3.5 - 5.6 cm AV Mean Alphonso 2.0 m/sec LVIDs 2D 1.4 2.1 - 4.1 cm AV Mean PG 19.4 mmHg LVPWd 2D 0.9 0.6 - 1.1 cm AV Peak Alphonso 3.3 m/sec IVSd 2D 0.9 0.6 - 1.1 cm AV Peak PG 42.4 mmHg AoR Diam 2D 2.8 2.0 - 3.7 cm AV VTI 50.8 cm EDV 2D 66.0 cm3 TR Peak Alphonso 3.0 m/sec ESV 2D 2.5 cm3 TR Peak PG 36.6 mmHg LA Dimen 2D 4.3 2.3 - 4.0 cm RVSP 52.0 mmHg Findings Left Ventricle: Hyperdynamic left ventricular systolic function. Normal left ventricular cavity size. Normal left ventricular wall thickness. Ejection fraction is visually estimated at 7075 %. Tissue Doppler/Mitral Doppler indices are consistent with impaired relaxation (Stage I diastolic dysfunction). Resting left ventricular outflow tract velocity 3.26 m/sec. Resting left ventricular outflow tract gradient 2.0 mmHg. Right Ventricle: Normal right ventricular size. Normal right ventricular systolic function. Left Atrium: There is mild enlargement of left atrium. Right Atrium: The right atrium is normal in size. Mitral Valve: Mitral valve leaflets appear mildly thickened. Mild mitral annular calcification. Trace mitral regurgitation. Aortic Valve: Normal appearance of the aortic valve. No significant aortic stenosis or insufficiency. Tricuspid Valve: Estimated peak PA systolic pressure 52 mmHg. There is moderate tricuspid regurgitation. Pericardium: Normal pericardium with no significant pericardial effusion. Left pleural effusion seen. Aorta: Normal aortic root. IVC: Inferior vena cava without respiratory collapse, however, patient on ventilator. Conclusions 1.Hyperdynamic left ventricular systolic function. Normal left ventricular cavity size. Normal left ventricular wall thickness. Ejection fraction is visually estimated at 70-75 %. Tissue Doppler/Mitral Doppler indices are consistent with impaired relaxation (Stage I diastolic dysfunction). Resting left ventricular outflow tract velocity 3.26 m/sec. Resting left ventricular outflow tract gradient 2.0 mmHg. 2.There is mild enlargement of left atrium. 3.Mitral valve leaflets appear mildly thickened. Mild mitral annular calcification. Trace mitral regurgitation. 4.Normal appearance of the aortic valve. No significant aortic stenosis or insufficiency. 5.Estimated peak PA systolic pressure 52 mmHg. There is moderate tricuspid regurgitation. Electronically Signed By: Fabrizio Burrell 16-Sep-2016 10:35:38 -0800 Patient Name: CONNIE VILLA Study Date: 15-Sep-[id number]
[2016-09-16] MEDS ORDERED: BUMETANIDE 25 MG in DEXTROSE 5% 150 ML IV SCH (11:30)
[2016-09-16] MEDS ORDERED: LORAZEPAM 2 MG INJ IV ONE (11:30)
[2016-09-16] MEDS ORDERED: morphine 2 MG INJ IV ONE (11:30)
[2016-09-16] MEDS ORDERED: morphine (DRIP) 100 MG/D5W 100 ML IV SCH (11:45)
[2016-09-16] MEDS ORDERED: CASPOFUNGIN 35 MG in SOD CHLORIDE 0.9% 250 ML IV SCH (12:00)
--- NOTE | 2016-09-16 12:33 | CONS ---
Date/Time of Note Date/Time of Note DATE: 09/16/16 TIME: 12:28 Consult Date/Type/Reason Admit Date/Time Sep 15, 2016 at 09:50 Initial Consult Date 09/15/16 Type of Consultation: Pulm Ordering Provider: WELLINGTON HERRON MD Subjective Continues ventilator. Appears uncomfortable. Not following commands. Family at bedside. Objective Vital Signs Date Time Temp Pulse Resp B/P Pulse Ox O2 Delivery O2 Flow Rate FiO2 09/16/16 10:03 120 29 93 40 09/16/16 06:00 101/51 Mechanical Ventilator 09/16/16 04:00 98.0 Intake and Output 09/15/16 09/15/16 09/16/16 15:00 23:00 07:00 Intake Total 312 ml 1820.575 ml 1374 ml Output Total 0 ml Balance 312 ml 1820.575 ml 1374 ml PHYSICAL EXAMINATION: GENERAL: Chronically ill appearing gentleman. Opens eyes to voice but not consistently following commands. Agonal respiration. VITAL SIGNS: NECK: Trach site clean and intact. CARDIAC: S1, S2, no added sounds or murmurs. CHEST: Diminished air entry bilaterally. ABDOMEN: Soft, nontender. No guarding or rebound. EXTREMITIES: No cyanosis, clubbing, 2+ edema. NEUROLOGIC: Generalized weakness, unable to assess. Results/Medications Result Diagram: 09/16/16 0405 09/16/16 0708 Results 24 hrs Laboratory Tests Test 09/15/16 13:28 09/15/16 13:36 09/15/16 16:00 09/15/16 16:46 Bedside Glucose 86 64 L Arterial Blood HCO3 9.5 *L Arterial Blood Base Excess -15.6 L Arterial Blood Oxygen Saturation 91.0 L Wai Test ACCEPTAB Arterial Blood Gas Puncture Site Right Radial Arterial Blood Carboxyhemoglobin 0.1 Arterial Blood Date Drawn 09/15/2016 2:00:27 PM Arterial Blood Methemoglobin 0.1 Arterial Blood pCO2 (Temp correct) 21.6 L Arterial Blood pH (Temp corrected) 7.262 *L Arterial Blood pO2 (Temp corrected) 66.9 L Blood Gas A-a O2 Differential 193.5 H Blood Gas Actual Respiration Rate 14 Blood Gas Critical Value Read Back I MAXI CID Blood Gas Low PEEP Setting 5.0 Blood Gas Modality VENT - AC Blood Gas Notified Time 09/15/2016 2:16:11 PM Blood Gas Notified Whom JLD Blood Gas Respiration Rate 12.0 Blood Gas Specimen Source Blood arterial Blood Gas Temperature 37.0 Blood Gas Tidal Volume 600.0 FiO2 40.0 Oxyhemoglobin Percent 90.8 L Total Hemoglobin 11.6 L Alanine Aminotransferase (ALT/SGPT) 234 H Albumin 1.8 L Albumin/Globulin Ratio 0.58 Alkaline Phosphatase 126 #H Anion Gap 26 H Anisocytosis 2+ Aspartate Amino Transf (AST/SGOT) 320 #H Band Neutrophils % 35.0 H Blood Morphology Comment Blood Urea Nitrogen 69 H Calcium Level 8.9 Carbon Dioxide Level 8 *L Chloride Level 99 Creatinine 0.53 #L Direct Bilirubin 5.70 #H Globulin 3.10 Glucose Level 307 #H Hematocrit 27.7 L Hemoglobin 9.0 L Indirect Bilirubin 1.8 H Lactic Acid Level 9.4 *H Large Platelets FEW Lymphocytes # 0.3 L Lymphocytes % 2.0 L Macrocytosis 2+ Mean Corpuscular Hemoglobin 38.1 H Mean Corpuscular Hemoglobin Concent 32.6 Mean Corpuscular Volume 117.1 H Mean Platelet Volume 12.8 H Metamyelocytes # 0.3 Metamyelocytes % 2.0 H Neutrophils # 9.5 H Neutrophils % 61.0 Platelet Count 67 L Platelet Estimate PLT APPEAR DECREASED Potassium Level 4.7 Red Blood Count 2.37 L Red Cell Distribution Width 25.9 H Sodium Level 128 L Total Bilirubin 7.5 #H Total Protein 4.9 #L White Blood Count 15.6 #H Test 09/15/16 17:09 09/15/16 17:23 09/15/16 18:40 09/15/16 20:00 Bedside Glucose 105 98 Anion Gap 27 H Blood Urea Nitrogen 84 H Calcium Level 10.7 H Carbon Dioxide Level 11 L Chloride Level 103 Creatinine 2.11 #H Glucose Level 69 #L Potassium Level 6.0 H Sodium Level 135 Arterial Blood HCO3 9.9 *L Arterial Blood Base Excess -15.4 L Arterial Blood Oxygen Saturation 92.4 L Wai Test ACCEPTAB Arterial Blood Gas Puncture Site Right Radial Arterial Blood Carboxyhemoglobin 0.2 Arterial Blood Date Drawn 09/15/2016 8:40:57 PM Arterial Blood Methemoglobin 0.2 Arterial Blood pCO2 (Temp correct) 22.7 L Arterial Blood pH (Temp corrected) 7.257 *L Arterial Blood pO2 (Temp corrected) 70.8 L Blood Gas A-a O2 Differential 188.3 H Blood Gas Actual Respiration Rate 27 Blood Gas Critical Value Read Back GAVIN RN Blood Gas Low PEEP Setting 5.0 Blood Gas Modality VENT - AC Blood Gas Notified Time 09/15/2016 8:48:59 PM Blood Gas Notified Michelle CARMONA Blood Gas Respiration Rate 22.0 Blood Gas Specimen Source Blood arterial Blood Gas Temperature 37.0 Blood Gas Tidal Volume 600.0 FiO2 40.0 Oxyhemoglobin Percent 92.0 L Total Hemoglobin 11.2 L Test 09/15/16 20:21 09/15/16 21:55 09/16/16 02:47 09/16/16 04:05 Bedside Glucose 76 87 Lactic Acid Level 6.5 *H 9.3 *H Anisocytosis 2+ Band Neutrophils % 33.0 H Blood Morphology Comment Differential Comment MANUAL DIFF Giant Platelets RARE Hematocrit 26.7 L Hemoglobin 8.4 L Large Platelets RARE Lymphocytes # 0.4 L Lymphocytes % 2.0 L Macrocytosis 2+ Mean Corpuscular Hemoglobin 38.7 H Mean Corpuscular Hemoglobin Concent 31.5 L Mean Corpuscular Volume 123.0 H Mean Platelet Volume 13.2 H Metamyelocytes # 0.2 Metamyelocytes % 1.0 H Monocytes # 0.2 L Monocytes % 1.0 Neutrophils # 12.3 H Neutrophils % 63.0 Nucleated Red Blood Cells % 1.0 H Platelet Count 70 L Red Blood Count 2.17 L Red Cell Distribution Width 25.9 H White Blood Count 19.6 #H Test 09/16/16 06:52 09/16/16 07:00 09/16/16 07:08 09/16/16 09:58 Bedside Glucose 110 108 Arterial Blood HCO3 7.9 *L Arterial Blood Base Excess -17.7 L Arterial Blood Oxygen Saturation 93.8 L Wai Test ACCEPTAB Arterial Blood Gas Puncture Site Right Radial Arterial Blood Carboxyhemoglobin 0.3 Arterial Blood Date Drawn 09/16/2016 7:50:57 AM Arterial Blood Methemoglobin 0.3 Arterial Blood pCO2 (Temp correct) 19.4 L Arterial Blood pH (Temp corrected) 7.228 *L Arterial Blood pO2 (Temp corrected) 78.9 L Blood Gas A-a O2 Differential 184.0 H Blood Gas Actual Respiration Rate 30 Blood Gas Critical Value Read Back Katya WONG RN Blood Gas Low PEEP Setting 5.0 Blood Gas Modality VENT - AC Blood Gas Notified Time 09/16/2016 8:05:32 AM Blood Gas Notified Whom JLD Blood Gas Respiration Rate 12.0 Blood Gas Specimen Source Blood arterial Blood Gas Temperature 37.0 Blood Gas Tidal Volume 600.0 FiO2 40.0 Oxyhemoglobin Percent 93.2 Total Hemoglobin 11.2 L Alanine Aminotransferase (ALT/SGPT) 1739 H Albumin 2.3 L Alkaline Phosphatase 245 #H Anion Gap 32 H Aspartate Amino Transf (AST/SGOT) 3769 H Blood Urea Nitrogen 85 H Calcium Level 10.0 Carbon Dioxide Level 6 #*L Chloride Level 99 Creatinine 2.08 H Direct Bilirubin 7.60 H Glucose Level 95 Indirect Bilirubin 2.5 H Magnesium Level 2.0 Potassium Level 6.7 *H Sodium Level 130 L Total Bilirubin 10.1 H Total Protein 6.0 #L Medications Current Medications Morphine Sulfate/ Dextrose (morphine) 100 ml @ 1 mls/hr TITRATE IV Last administered on 09/16/16t 11:47; Admin Dose 1 MLS/HR; Start 09/16/16 at 11:45 Assessment/Plan Chief Complaint/Hosp Course IMPRESSION: 1. Septic shock, likely polymicrobial. 2. Vent dependent respiratory failure. 3. History of multiple malignancies. 4. Encephalopathy following recent hemorrhagic CVA. 5. Acute renal failure with severe metabolic acidosis. Long discussion with family at bedside. They understand prognosis is very poor and patients condition is terminal In accordance with patient's wishes they have requested removal of life support. Will place on morphine drip / ativan and removal of vent Changed code status to full DNR. Problems: KEITH BROUSSARD MD, [facility] Sep 16, 2016 12:32
--- NOTE | 2016-09-16 12:35 | CONS ---
DATE OF ADMISSION: 09/15/2016 DATE OF CONSULTATION: 09/16/2016 TYPE OF CONSULTATION: Cardiology. REFERRING PHYSICIAN: Dr. Broussard REASON FOR CONSULTATION: Arrhythmia. CHIEF COMPLAINT: Respiratory failure, sepsis, altered consciousness. HISTORY OF PRESENT ILLNESS: Thank you for this referral. History obtained from the extensive revie w of the old chart, discussion with physician and staff and multiple family members at the bedside. This unfortunate 66-year-old gentleman with multiple complicated medical history who apparently has suffered from no hemorrhagic stroke in July of 2016. The patient has expressive aphasia, has r espiratory failure, tracheostomy. The patient has been in [facility] facility for respiratory care. patient was found to be in respiratory distress and required to be getting more oxygen and become more hypotensive and transferred to ICU. Currently on 2 pressors, Levophed and dopamine drip. Has been in atrial fibrillation with rapid ventricular response, we were kindly asked to evaluate and tr eat. The patient has been nonresponsive and in respiratory distress on the vent. 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 Status post respiratory failure, status post tracheostomy. Dysphagia. MEDICATIONS: As per medication reconciliation, personally reviewed. ALLERGIES: NO REPORTED DRUG ALLERGIES. FAMILY HISTORY: No reported early coronary artery disease. SOCIAL HISTORY: The history of alcohol use in the past. Unclear if he has been smoking in past. No active smoking. REVIEW OF SYSTEMS: Unable to obtain except for above-mentioned. Patient unresponsive. PHYSICAL EXAMINATION: VITAL SIGNS: Temperature 98, heart rate of 120, blood pressure 92/38, respiration rate of 26, satur ating 97% on 40% oxygen. HEENT: Normocephalic, atraumatic. Positive for jaundice there. CARDIOVASCULAR: Irregularly irregular. Systolic murmur. PULMONARY: Diffuse rhonchi. GASTROINTESTINAL: Distended. EXTREMITIES: Diffuse upper and lower extremity edema. NEUROLOGIC: Eyes are open, does not follow commands. DERMATOLOGIC: Positive for jaundice diffuse. PSYCHIATRIC: Unable to assess. LABORATORY: Sodium 130, potassium 6.7, BUN of 85, creatinine of 2.08, glucose of 95, AST of 3769, A LT of 1739. Albumin is 2.3. Chest x-ray shows low lung volume. Echocardiogram was personally revi ewed, which shows ejection fraction of 70% to 75%. Mild left atrial enlargement. PA pressures appe ared to . Rhythm strip showed atrial fibrillation with a bundle branch block. ASSESSMENT AND PLAN: 1. Septic shock. 2. Hypoxemia respiratory failure, status post intubation on the vent. 3. Atrial fibrillation with rapid ventricular response. 4. Acute renal failure. 5. Acute liver failure with markedly elevated LFTs, which was not this elevated a day ago. 6. Severe hyperkalemia. 7. Severe lactic acidosis with lactic acid level of 9.3, bicarb of 6. 8. Encephalopathy. 9. Cirrhosis 10. Thrombocytopenia. 11. Severe metabolic acidosis. RECOMMENDATIONS: Prognosis is very poor. Discussed with the family. At this point they just comfo rt care and want to discontinue the pressors. We will respect her wishes. Morphine will be given t o keep the patient comfortable. Dictated By: JORGE A HERNANDEZ MD AV/RA Conf#: [id number] DID#: [id number] CC: KEITH BROUSSARD MD;*EndCC*
--- NOTE | 2016-09-16 12:49 | PN ---
DATE: 09/16/2016 INFECTIOUS DISEASE PROGRESS NOTE SUBJECTIVE: The patient is doing poorly. He is on multiple pressors, obtunded, with shallow respir ations, on full vent support. No fevers. Temperature 98, pulse 120, respirations 29, blood pressur e 92/138, saturations 97 on 40 FIO2. WBC 19.6, H and H 8.4 and 26.7, platelet count 70. Bands 33, lymphs 2, monos 1. Sodium 130, potassium 3.7, BUN 85, creatinine 2.08. Lactic acid 9.3, total bili albrecht 10.1, AST 3769, ALT 1739, alkaline phosphatase 245. MICROBIOLOGY: Sputum culture growing gram-negative rods. Blood culture from September 15 done at [facility] growing gram-negative rods. Urine culture since September 13 growing Pseudomonas aerug inosa. Chest x-ray revealed low lung volume, with mild bibasilar subsegmental atelectasis. INDWELLINGS: The patient has a trach, PEG, left upper extremity AV fistula. ANTIMICROBIALS: 1. Vancomycin. 2. Cansidas. 3. Imipenem. PHYSICAL EXAMINATION: GENERAL: This is an obese, chronically ill-appearing, elderly man, who is obtunded and in no distre ss. HEENT: Head atraumatic, normocephalic. Sclerae anicteric. Buccal mucosa dry. NECK: Supple. CHEST: Chest rise is symmetrical. Breath sounds diminished. HEART: S1, S2. ABDOMEN: Obese, distended. Bowel tones hypoactive. EXTREMITIES: With edema, mottled. ASSESSMENT: 1. Severe sepsis with shock and multisystem organ failure. 2. Pseudomonas aeruginosa urinary tract infection. 3. Gram-negative alanis septicemia. 4. Chronic respiratory failure. 5. Transaminitis, possibly shock liver. 6. Acute renal failure, with electrolyte imbalance and metabolic acidosis. 7. History of cerebrovascular accident. 8. Diabetes. 9. History of hypertension. PLAN: The patient is doing poorly. He is on broad-spectrum antibiotics, which we are going to cont inue for now. Pending palliative care evaluation. Follow final cultures. OVERALL PROGNOSIS: Poor. Dictated By: COLTON GOMEZ SHOW WORKER for JENNY PAGAN/NTS Conf#: [id number] DID#: [id number]
--- NOTE | 2016-09-16 12:53 | CONS ---
DATE OF ADMISSION: 09/15/2016 DATE OF CONSULTATION: HISTORY OF PRESENT ILLNESS: A 66-year-old gentleman with a history of cirrhosis of liver, hepatocel lular cancer status post radiofrequency ablation at [facility]. Had hemiplegic stroke and was at [facility] care. Patient also was on the vent and G-tube feeding. However, in [place] his condition de teriorated. He was in respiratory distress, so was transferred to intensive care unit at [facility]. The patient's lactic acid was high. The patient always has been obtunded. PAST MEDICAL HISTORY: As described. MEDICATIONS: All reviewed. He was also on caspofungin besides the rifaximin, Aldactone and Regl an at [place]. ALLERGIES: NO KNOWN DRUG ALLERGIES. FAMILY HISTORY: Nothing contributory. REVIEW OF SYSTEMS: Negative. PHYSICAL EXAMINATION: GENERAL: Overweight, not in distress. Patient is obtunded. He is on the vent. ABDOMEN: Benign. G-tube is working. It is in place. EXTREMITIES: All 3 to 4+ pedal edema. CENTRAL NERVOUS SYSTEM: The patient is basically in a coma, not responding to any command. LABORATORY DATA: His WBC was 20. Platelet count was just 75, hematocrit was 29, BUN was 28, creati nine was 2. Bilirubin being 4.8. Ammonia was 36. IMPRESSION: 1. Septic shock, most probably from pneumonia. 2. Cirrhosis of liver, decompensated. 3. Anasarca. 4. Chronic kidney disease, probably hepatorenal syndrome. 5. Thrombocytopenia. 6. Hepatocellular cancer status post radiofrequency ablation. 7. Diabetes mellitus. 8. Cerebrovascular secondary to intracranial bleed. 9. Vent dependent respiratory failure. PLAN: Continue present care, stop all the diuretics, continue antibiotic. Continue all the support donell care pending family's decision to terminally extubate the patient. Dictated By: EDWARD BALLARD/RA Conf#: [id number] DID#: [id number]
--- NOTE | 2016-09-16 13:34 | CONS ---
DATE OF ADMISSION: 09/15/2016 DATE OF CONSULTATION: TYPE OF CONSULTATION: Renal. REFERRING PHYSICIAN: Dr. Quinteros. Thank you very much, Dr. Quinteros, for the courtesy of consultation. HISTORY OF PRESENT ILLNESS: The patient is an unfortunate 66-year-old gentleman with past medical history of hypertension, diabetes, cirrhosis, multiple myeloma, lung cancer, hepatocellular carcinoma, BPH, hemorrhagic stroke in July 2016 with expressive aphasia with complication of sta tus epilepticus and encephalopathy. Since that time, the patient has been in [place] after being int ubated in August. HOSPITAL COURSE: [place] has been complicated by hypernatremia, hyperglycemia, noted to have respira tory distress at which point he was transferred back to ICU at [facility] with sepsis likel y secondary to pneumonia and seen by multiple specialists. He has a history of cirrhosis. PAST MEDICAL HISTORY: Significant for the above. MEDICATIONS: Currently include: 1. Dopamine. 2. Levophed. 3. Nitroglycerin p.r.n. 4. Tylenol. 5. Prevacid. 6. Protonix. 7. Lorazepam. 8. Lacosamide. 9. Keppra. 10. Reglan. 11. Rifaximin. 12. Aldactone. 13. Vancomycin IV. 14. Cefepime. 15. Cancidas. 16. Santyl ointment. 17. Silver sulfadiazine. 18. The patient has also received doses of albumin. ALLERGIES: THE PATIENT HAS NO KNOWN ALLERGIES. SOCIAL HISTORY: Does not smoke, drink or use drugs. FAMILY HISTORY: No history of kidney disease. REVIEW OF SYSTEMS: A 14-point review of systems is attempted and negative and also stated. PHYSICAL EXAMINATION: VITAL SIGNS: We see temperature 98, blood pressure is 108/53. HEENT: Head is normocephalic, atraumatic. Pupils equal, round to light. Oropharynx shows moist mu cous membranes. NECK: Supple. HEART: Regular rate and rhythm. LUNGS: Clear. ABDOMEN: Soft, nontender, nondistended. Normoactive bowel sounds. EXTREMITIES: No cyanosis. LABORATORY EVALUATION: Pending. IMPRESSION: 1. Septic shock. 2. Acute on chronic renal insufficiency. 3. Atrial fibrillation with rapid ventricular response. 4. Hypoxic necrosis, status post intubation on the vent. 5. Acute with markedly elevated LFTs, possibly shock liver. 6. Lactic acidosis. 7. Cirrhosis with severe metabolic acidosis. Discussed with family and plan comfort care. We are respecting their wishes. We will continue to m onitor peripherally. If nephrology services needed, we will 3 consult. Dictated By: CORINNE JONES MD DF/NTS Conf#: [id number] DID#: [id number] CC: MIKE QUINTEROS MD;*EndCC*
[2016-09-16] MEDS ORDERED: VANCOMYCIN 1 GM in NS 250 ML IVPB SCH (14:00)
--- NOTE | 2016-09-16 14:23 | CONS ---
DATE OF ADMISSION: 09/15/2016 DATE OF CONSULTATION: 09/16/2016 TYPE OF CONSULTATION: Family conference. Family conference was done next to patient's room with and daughter. She has told me family mark ve decided to withdraw this level of care and allow him to a comfortable, dignified end of life. Their wishes will be respected. We will discontinue any current aggressive care at this time and t reat patient with comfort medications. Dictated By: LUIGI KING MD LP/RA Conf#: [id number] DID#: [id number]
--- NOTE | 2016-09-16 14:28 | CONS ---
DATE OF ADMISSION: 09/15/2016 DATE OF CONSULTATION: 09/16/2016 TYPE OF CONSULTATION: Palliative care. REFERRING PHYSICIAN: Dr. Jack Quinteros HISTORY OF PRESENT ILLNESS: This is an unfortunate 66-year-old gentleman with a history of multiple lung cancers including hepatocellular carcinoma lung cancer, multiple myeloma, also hemorrhagic str eva 07/2016. The patient developed a seizure disorder post-hemorrhage, progressively decrease in co gnitive abilities, required a trach and a PEG tube placed; was transferred to [place]. Unfortunately , he became septic at [place] and was transferred back to the intensive care unit. This gentleman mark s an extremely poor prognosis and required intensive therapy, multiple different subspecialists invo lved in his case, and currently is extremely ill and in all probability will not survive this hospit alization. MEDICATIONS: Please refer to reconciliation sheet. ALLERGIES: NO KNOWN DRUG ALLERGIES. MAJOR MEDICAL PROBLEMS: In the past are substantial, and please refer to history of present illness ; risk factors, in addition hypertension, type 2 diabetes, cirrhosis, respiratory failure, seizure d isorder. Other comorbid major medical problems, please refer to history of present illness. SOCIAL HISTORY: Lives in a subacute unit. FAMILY HISTORY: Noncontributory. REVIEW OF SYSTEMS: Cannot be obtained. PHYSICAL EXAMINATION: VITAL SIGNS: Blood pressure 101/51, pulse of 83 and regular, respirations are 26, pulse oximetry 98 on 40% FIO2. HEENT: He is normocephalic and atraumatic. He has prominent scleral icterus. GENERAL: On examination, he is noncommunicative at all. He is a morbidly obese gentleman. CHEST: Distant inspiratory and expiratory breath sounds. COR: S1, S2, without S3, S4, murmur, gallop, rub. Normal rate, normal rhythm. ABDOMEN: Grossly distended, all 4 quadrants. No bowel sounds can be appreciated. NEUROLOGIC EXAMINATION: He does not respond to any stimuli whatsoever. He has sluggish oculocephal ics on examination. There is no purposeful movement, does not spontaneously open his eyes or track me. LABORATORY TESTS: Please refer to above lab tests. ASSESSMENT AND PLAN: This is a 66-year-old gentleman who is in the intensive care unit, septic. He has multiple comorbid major medical problems as listed in history of present illness; is not expect ed to survive this hospitalization. I have had an extensive conference with patient's family member s including , daughter, extended family members, primarily 2nd degree members, and talked about his overall prognosis. Dr. Quinteros has already changed patient's code status to DO NOT RESUSCITAT E. At the end of this conversation with family members, we have decided to have another followup me eting at 1030 hours tomorrow morning on , designed to allow family to talk amongst themsel ves after options have been discussed. Dictated By: LUIGI KING MD LP/NTS Conf#: [id number] DID#: [id number] CC: JACK QUINTEROS MD;*End*
--- NOTE | 2016-09-16 17:06 | DS ---
DATE OF ADMISSION: 09/15/2016 DATE OF DISCHARGE: 09/16/2016 Patient's code status DNR and then was changed to chemical code. CONSULTANTS: 1. Dr. Lopez 2. Dr. Hemphill. 3. Dr. Martinez. 4. Dr. Fabrizio Burrell. 5. ____ 6. Dr. Brand DIAGNOSES: 1. Sepsis. 2. Shock liver. 3. Acute on chronic renal insufficiency. 4. Severe metabolic acidosis. 5. History of immunocompromise. 6. Hyperkalemia secondary to acute renal insufficiency. 7. Thrombocytopenia. 8. Pancytopenia. 9. History of hemorrhagic cerebrovascular accident. 10. Diabetes mellitus type 2. 11. History of essential hypertension. 12. Ventilator dependent respiratory failure. 13. Dysphagia, status post percutaneous endoscopic gastrostomy tube feeding. 14. Septic shock. 15. Hypoxic necrosis. 15. Cirrhosis with severe metabolic acidosis. CAUSE OF : 1. Cardiopulmonary arrest. 2. Pneumonia. 3. Septic shock. HOSPITAL COURSE: This is an unfortunate 66-year-old gentleman with past medical history of hypertension, diabetes mellitus type 2, cirrhosis, multiple myeloma, lung cancer, hepatocellular carcinoma, benign prostatic hypertrophy, hemorrhagic stroke in July 2016 who had expressive apha keily and then subsequently seizure, developed ____atelectasis and had not recovered from mental statu s, which he recently subsequently was intubated in August of 2016 and required mechanical ventilat or support. Subsequently, he had a tracheostomy and gastrostomy and request for attempt for paracen tesis secondary to cirrhosis and hepatocellular carcinoma, has been placed on G-tube feeding, was tr ansferred to [facility] on 09/03/2016 and since then he was evaluated by pulmonology, nephrolog y, endocrinology and gastroenterology, has not been responsive and has been medically managed. Al though on 09/13/2016 patient was found to have worsening of his respiratory status requiring more ox ygen, having fever and found to be in septic shock, was transferred to [facility] ICU. The patient was started on broad spectrum IV antibiotics. He was found to be in liver shock, severe me tabolic acidosis, was placed on aggressive medical management with broad spectrum IV antibiotics, so dium bicarbonate. He was found to be anuric despite of being fluid overloaded. Nephrology was cons ulted. He was continued on aggressive fluid but then he required pressors, was started on a dopami ne and then eventually was placed on Levophed. Palliative care physician was consulted. After meet ing with last several doctors and discussing the prognosis and discussing the medical management an d the diagnosis. The family decided to change the code status to DNR from FULL CODE. Today on 01/2017, the family decided to proceed with comfort measures; therefore, patient was placed on comfor t measure protocol, and was weaned off from the vent. The patient at 1:45 p.m./ 1345. The family was at the bedside. Patient was pronounced at 1350. Dictated By: MIKE JESUS/NTS Conf#: [id number] DID#: [id number]
== END 2016-09-16 13:45 | disposition expired | DRG 871 ==
LOC: ICU 09:50
PROVIDERS: ADMIT Family Medicine; ATTEND Family Medicine
PROC: 5A1935Z Respiratory Ventilation, Less than 24 Consecutive Hours (ICD-10-PCS; principal; 2016-09-15)
DX: A41.9 Sepsis, unspecified organism (principal); R65.21 Severe sepsis with septic shock; K72.00 Acute and subacute hepatic failure without coma; I46.9 Cardiac arrest, cause unspecified; G93.49 Other encephalopathy; J18.9 Pneumonia, unspecified organism; N17.9 Acute kidney failure, unspecified; D61.818 Other pancytopenia; Z99.11 Dependence on respirator [ventilator] status; E87.2 Acidosis; J96.11 Chronic respiratory failure with hypoxia; Z51.5 Encounter for palliative care; Z66 Do not resuscitate; E87.5 Hyperkalemia; D69.6 Thrombocytopenia, unspecified; E11.9 Type 2 diabetes mellitus without complications; K74.60 Unspecified cirrhosis of liver; Z93.1 Gastrostomy status; Z93.0 Tracheostomy status
CPT/HCPCS: 36600; 71010; 80048; 80053; 80076; 82803; 82962; 83605; 83735; 84134; 85025; 87040; 87070; 87081; 93306; 94002; 94003; 94664; 94770; C9113; J0692; J1265; J1610; J1815; J2060; J2270; J3370; J7030; J7040; J7050; J7070; P9047